=== PATIENT | male | born 1965 ===

== ENCOUNTER 2022-11-25 06:20 | Day surgery (SDC) | payer MEDICAID, SELFPAY ==
[2022-11-25 06:32] VITALS: BP 145/82; PULSE 76; RESP 16; TEMP 36.5; O2SAT 97
[2022-11-25] MEDS: Tropicam./Phenyleph. (1/2.5%) 5 ML BTL OD ×3 (06:40→06:50)
--- NOTE | 2022-11-25 07:02 | W.ANESPRE ---
General Info Date of Service Date Performed: 11/25/22 Height: 5 ft 11 in Weight: 118.6 kg Body Mass Index (BMI): 36.4 Surgical Procedure: Operation Date: 11/25/22 07:40 Proposed Procedure Side Surgeon p Cataract Extraction with IOL Implant Right Júnior Arce MD Meds Allergies and Home Medications Allergies Allergy/AdvReac Type Severity Reaction Status Date / Time ibuprofen AdvReac Intermediate Vomiting Verified 11/25/22 06:27 Home Medication Medication Instructions Recorded duloxetine 60 mg capsule,delayed 60 mg PO DAILY 11/24/22 release esomeprazole magnesium 40 mg 40 mg PO DAILY 11/24/22 capsule,delayed release magnesium gluconate 12.5 mg 250 mg PO DAILY 11/24/22 magnesium (250 mg) tablet meloxicam 15 mg tablet 15 mg PO DAILY 11/24/22 propranolol 60 mg tablet 60 mg PO BID 11/24/22 simvastatin 40 mg tablet 40 mg PO DAILY 11/24/22 topiramate 25 mg tablet 25 mg PO HS 11/24/22 Current Visit Medications: Current Medications Generic Name Dose Route Start Last Admin Trade Name Freq PRN Reason Stop Dose Admin Acetaminophen 1,000 mg 11/25/22 06:00 Acetaminophen 500 Mg Tab PO 12/25/22 05:59 Q4H PRN PRN Balanced Salt Solution 500 ml 11/25/22 06:00 Balanced Salt Soln.-Plus 500 Ml Bag OP 12/25/22 05:59 DIRECTED [facility] Miscellaneous Medication 0 ml 11/25/22 06:00 Prednisolone 1%, Moxifloxacin 0.5%, Nepafenac 0.1% 5ml Btl OD 12/25/22 05:59 DIRECTED [facility] Miscellaneous Medication 0 ml 11/25/22 06:00 11/25/22 06:50 Tropicam./Phenyleph. (1/2.5%) 5 Ml Btl OD 12/25/22 05:59 1 drp DIRECTED [facility] Administration Tetracaine HCl 0 ml 11/25/22 06:00 Tetracaine 0.5% 4 Ml Btl OD 12/25/22 05:59 DIRECTED [facility] PFSH Active Problems Active Problems: Problem Status Onset Code Nuclear age-related cataract, right eye H25.11 Cortical age-related cataract, right eye H25.011 Medical History Medical History Abdominal pain Actinic keratosis Allergic rhinitis Chest pain Per pt. niece stated he had this worked up and came back negative CKD (chronic kidney disease) Connective tissue disorder Constipation COPD (chronic obstructive pulmonary disease) Depressive disorder GERD (gastroesophageal reflux disease) Hand joint pain Hearing loss in right ear Heartburn HLD (hyperlipidemia) Hx musculoskeletal disease Impotence Increased frequency of urination Insomnia Kidney stone Low back pain Mental disorder Need for zoster vaccine Non-organic sleep disorder Obesity PLMD (periodic limb movement disorder) Reduced libido Refractory migraine with aura Surgical History Surgical History Hx of colonoscopy Tobacco Smoking/Tobacco Use Status: Former Tobacco Use Alcohol Alcohol Intake: never Substance Use Substance use: Never Substance use type: does not use Vital Signs and Lab Results Vital Signs Most Recent Vital Signs in EMR: Most Recent Vital Signs Temp Pulse Resp BP Pulse Ox 36.5 C 76 16 145/82 H 97 11/25/22 06:32 11/25/22 06:32 11/25/22 06:32 11/25/22 06:32 11/25/22 06:32 Lab Results Blood Type / Crossmatch: No Data to Display Complete Blood Count: No Data to Display Complete Metabolic Panel: No Data to Display Liver Function Panel: No Data to Display Coagulation Panel: No Data to Display Cardiac Panel: No Data to Display Arterial Blood Gas: No Data to Display Venous Blood Gas: No Data to Display Pancreas Panel: No Data to Display Thyroid Panel: No Data to Display Infectious Disease: No Data to Display Blood Cultures: No Data to Display Toxicology Panel: No Data to Display Anesthesia Assessment and Plan Anesthesia History Personal History: No History of Anesthesia Complications Family History: No Family History of Anesthesia Complications Exercise Tolerance Exercise Tolerance: Metabolic Equivalents<4 Pertinent Negatives Pertinent Negatives: No Symptoms of GERD, No Major Cardiovascular Symptoms or Complaints and No Major Pulmonary Symptoms or Complaints Cardiac & Pulmonary Exam Cardiac Exam: Normal S1/S2 Heart Sounds Pulmonary Exam: Clear Bilateral Breath Sounds Implantable Cardiac Device Does patient have a Pacemaker or an ICD?: No Airway Exam Known Difficult Airway: No Mallampati Class: 3 Mouth Opening: Normal (> 3cm) Thyromental Distance: Greater than 3 cm Neck Range of Motion: Full ROM Neck Circumference: Normal Teeth Condition: Edentulous ASA Classification ASA Score: ASA 3 Emergency Case?: No NPO Status NPO Status: NPO Clears >2 hours, Solids >8 hours Anesthesia Plan Resuscitation Status: Full Code Anesthesia Technique: MAC Anesthesia Airway Planned: Natural Airway Monitors Used: Standard Monitors
[2022-11-25 07:05] VITALS: BMI 36.4
[2022-11-25] MEDS: Tetracaine 0.5% 4 ML BTL OD (07:34)
[2022-11-25] MEDS: Povidone-Iodine Ophth 30 ML BTL (07:35)
[2022-11-25] MEDS: Phenylephrine/Lidocaine (15/10) MG/ML 1 ML VIAL (07:38)
[2022-11-25] MEDS: Balanced Salt Soln.-PLUS 500 ML BAG OP (07:38)
[2022-11-25] MEDS: Lidocaine 1% Pres-Free 5 ML VIAL (07:39)
[2022-11-25] MEDS: Duovisc Viscoelastic System EACH 1 EACH (07:39)
[2022-11-25 08:00] VITALS: BP 144/86; PULSE 70; RESP 16; TEMP 36.4; O2SAT 95
--- NOTE | 2022-11-25 08:02 | ROE_ITS ---
Date of service: 11/25/22 Time of Service: 08:02 Operative Note Operative Note DATE OF PROCEDURE: 11/25/22 PRE-OP DIAGNOSIS: Nuclear/cortical cataract, right eye POST-OP DIAGNOSIS: same PROCEDURE: Cataract extraction using phacoemulsification with intraocular lens implant, right eye SURGEON: Júnior Arce ANESTHESIA TYPE: Local By Surgeon and MAC Refer to Anesthesia Record ESTIMATED BLOOD LOSS: 0 PATHOLOGY: none sent COMPLICATIONS: None Patient was transported to: same day Patient's condition: stable Implants: Rex Clareon [id number] Indications: Progressive decreased vision due to cataract, right eye Procedure Description: CATARACT SURGERY OPERATIVE REPORT PREOPERATIVE DIAGNOSIS: Nuclear/cortical cataract, right eye POSTOPERATIVE DIAGNOSIS: Same OPERATION: Cataract extraction using phacoemulsification with posterior chamber intraocular lens implant, right eye. IOL: IOL Medical Typist/Model: Rex Clareon [id number] IOL Power: + 19.5 diopters IOL Serial Number: [id number] Optic Diameter: 6.0mm Haptic/Overall Diameter: 13.0mm PHACO INFO: Rex[employer]a [employer]urion Vision System with OZil and Active Fluidics Cumulative Dispersed Energy (CDE): 19.37 seconds SURGEON: Júnior Arce MD, RADHA ANESTHESIA: Monitored Anesthesia Care (MAC), with local sub-tenon's anesthetic infiltration COMPLICATIONS: None SPECIMENS: None INDICATIONS FOR PROCEDURE: The patient is a 56-year-old male with history of diminished visual acuity in his right eye secondary to the development of dense nuclear/cortical cataract. He is significantly symptomatic that he desires cataract surgery and attempt to improve and maximize his vision. See office notes for detailed information. PROCEDURE: The correct surgical eye was identified and marked as the right eye and the pupil was dilated in the preoperative area using mydriatics and cycloplegics. The dilated pupil size was 7.0 mm. The patient elected to proceed without oral sedation. The patient was brought to the operating room where cardiopulmonary monitoring was instituted and surgical time-out was performed, confirming the correct operative eye and IOL power. Topical anesthesia was administered and ophthalmic povidone-iodine 5% was instilled into the conjunctival fornices. The ugo-ocular area was prepped with Betadine 10% solution and draped in the usual sterile fashion for intraocular surgery, including an aperture drape. A Tegaderm transparent film dressing was cut in half and used to cover the lashes and lid margins. Care was taken to sequester the lashes and lid margins under the Tegaderm dressing. A lid speculum was placed between the lids of the operative eye and the Galdino-Yvonne operating microscope was maneuvered into position. Josefina scissors were then used to make a conjunctival buttonhole approximately 6mm posterior to the limbus in the inferonasal quadrant. Blunt dissection was carried out to expose bare sclera, and a blunt-tipped sub-tenon?s anesthesia cannula was introduced and passed posteriorly along the globe where non- preserved plain lidocaine was injected into posterior sub-Tenon?s space. A sideport knife was used to make a paracentesis port. Intraocular phenylephrine/lidocaine was injected into the anterior chamber. The anterior chamber was then filled with viscoelastic. A keratome knife was used to construct a two--plane clear corneal tunnel extending 2.0mm into clear cornea. A flap was raised on the anterior capsule and capsulorhexis forceps were used to complete a continuous curvilinear capsulorhexis of 5.0 mm. Balanced salt solution was then used to perform cortical cleaving hydrodi ssection and nuclear hydrodelineation until the lens could be freely rotated within the capsular bag. The lens nucleus was then disassembled and removed within the capsular bag and iris plane using phacoemulsification. Residual cortical material was removed using the I/A handpiece. The posterior capsule was carefully polished to remove as much residual lens epithelial cells as safely possible. The capsular bag was then inflated and the anterior chamber deepened with cohesive viscoelastic. The lens implant described above was inserted into the capsular bag using the Rex Autonome Injector. A Kuglen hook was used to dial the IOL into position. Residual viscoelastic was then removed first from posterior to the IOL, then from the anterior chamber using the I/A handpiece. The lens implant was noted to center nicely within the capsular bag. The incisions were stromally hydrated, and the anterior chamber was reformed using BSS. Then 0.5cc of moxifloxacin 1.0mg/ml were injected into the capsular bag and anterior chamber. The incisions were checked with a Weck spear and found to be secure. Several drops of ophthalmic povidone-iodine 5% were then applied to the eye followed by two drops of Imprimis combination prednisolone/moxifloxacin/nepafenac solution. The apes were removed and a clear plastic protective eye shield was placed over the eye. The patient was then returned to Same Day Surgery in stable condition.
--- NOTE | 2022-11-25 08:02 | W.PM.DSUDISC ---
Date of service: 11/25/22 Time of Service: 08:02 Discharge Plan Disposition Patient Disposition: Home Discharge Details Attending Provider: Júnior Arce Primary Care Provider: Angie Byrd Home Meds and New Rx's Prescriptions: No Action meloxicam 15 mg tablet 15 mg PO DAILY Patient Comments: TAKE ONE TABLET BY MOUTH EVERY DAY topiramate 25 mg tablet 25 mg PO HS Patient Comments: TAKE ONE TABLET BY MOUTH EVERY DAY AT BEDTIME propranolol 60 mg tablet 60 mg PO BID Patient Comments: TAKE ONE TABLET BY MOUTH TWICE A DAY simvastatin 40 mg tablet 40 mg PO DAILY Patient Comments: TAKE ONE TABLET BY MOUTH EVERY DAY magnesium gluconate 12.5 mg magne- sium (250 mg) tablet 250 mg PO DAILY esomeprazole magnesium 40 mg capsule,delayed release(DR/EC) 40 mg PO DAILY Patient Comments: TAKE ONE CAPSULE BY MOUTH EVERY DAY duloxetine 60 mg capsule,delayed release(DR/EC) 60 mg PO DAILY Patient Comments: TAKE ONE CAPSULE BY MOUTH EVERY DAY Discharge Instructions Stand Alone Forms: Post-op Topical Cataract, Vernell Watters ([facility]) Discharge Orders Discharge Orders: Discharge Order (Routine); Ordered 11/25/22 Ordered By: Júnior Arce DS: Diagnosis Discharge Diagnosis (1) Nuclear age-related cataract, right eye: Status: Resolved (2) Cortical age-related cataract, right eye: Status: Resolved
--- NOTE | 2022-11-25 08:24 | W.ANESPOSTOP ---
Postoperative Evaluation Date, Time and Location Date Performed: 11/25/22 Time Performed: 08:01 Patient Location: Day Surgery Unit Vital Signs Most Recent Imported Vital Signs: Most Recent Vital Signs Temp Pulse Resp BP Pulse Ox 36.4 C L 70 16 144/86 H 95 11/25/22 08:00 11/25/22 08:00 11/25/22 08:00 11/25/22 08:00 11/25/22 08:00 Pain Score Most Recent Pain Score: Most Recent Pain Score Pain Level 0 11/25/22 08:00 Assessment Mental Status: Awake (Alert & Oriented to Patient Baseline) Airway and Respiratory Function: Patent airway with normal (patient baseline) respiratory exam Cardiovascular Function: Hemodynamically Stable Hydration Status: Adequately Hydrated Nausea & Vomiting: No Nausea or Vomiting Pain: Pt. Denies Any Pain Peripheral Nerve Block: Patient did not receive a nerve block
== END 2022-11-25 08:24 | disposition home or self-care (01) ==
LOC: SUR 06:20
PROVIDERS: PCP Nurse Practitioner Adult Health; Visit Provider Ophthalmology
PROC: (CPT 66984; principal; 2022-11-25 07:30)
DX: H25.11 Age-related nuclear cataract, right eye (principal); H25.011 Cortical age-related cataract, right eye; K21.9 Gastro-esophageal reflux disease without esophagitis
CPT/HCPCS: 66984; V2632

== ENCOUNTER 2022-12-09 06:19 | Day surgery (SDC) | payer MEDICAID, SELFPAY ==
[2022-12-09 06:30] VITALS: BP 126/80; PULSE 74; RESP 17; TEMP 36.5; O2SAT 97
[2022-12-09] MEDS: Tropicam./Phenyleph. (1/2.5%) 5 ML BTL OS ×3 (06:36→06:47)
--- NOTE | 2022-12-09 07:16 | W.ANESPRE ---
General Info Date of Service Date Performed: 12/09/22 Height: 5 ft 11 in Weight: 119.4 kg Body Mass Index (BMI): 36.7 Surgical Procedure: Operation Date: 12/09/22 07:40 Proposed Procedure Side Surgeon p Cataract Extraction with IOL Implant Left Júnior Arce MD Meds Allergies and Home Medications Allergies Allergy/AdvReac Type Severity Reaction Status Date / Time ibuprofen AdvReac Intermediate Vomiting Verified 12/09/22 06:35 Home Medication Medication Instructions Recorded duloxetine 60 mg capsule,delayed 60 mg PO DAILY 11/24/22 release esomeprazole magnesium 40 mg 40 mg PO DAILY 11/24/22 capsule,delayed release magnesium gluconate 12.5 mg 250 mg PO DAILY 11/24/22 magnesium (250 mg) tablet meloxicam 15 mg tablet 15 mg PO DAILY 11/24/22 propranolol 60 mg tablet 60 mg PO BID 11/24/22 simvastatin 40 mg tablet 40 mg PO DAILY 11/24/22 topiramate 25 mg tablet 25 mg PO HS 11/24/22 Current Visit Medications: Current Medications Generic Name Dose Route Start Last Admin Trade Name Freq PRN Reason Stop Dose Admin Acetaminophen 1,000 mg 12/09/22 06:00 Acetaminophen 500 Mg Tab PO 01/08/23 05:59 Q4H PRN PRN Balanced Salt Solution 500 ml 12/09/22 06:00 Balanced Salt Soln.-Plus 500 Ml Bag OP 01/08/23 05:59 DIRECTED [facility] Miscellaneous Medication 0 ml 12/09/22 06:00 Prednisolone 1%, Moxifloxacin 0.5%, Nepafenac 0.1% 5ml Btl OS 01/08/23 05:59 DIRECTED [facility] Miscellaneous Medication 0 ml 12/09/22 06:00 12/09/22 06:47 Tropicam./Phenyleph. (1/2.5%) 5 Ml Btl OS 01/08/23 05:59 1 drp DIRECTED [facility] Administration Tetracaine HCl 0 ml 12/09/22 06:00 Tetracaine 0.5% 4 Ml Btl OS 01/08/23 05:59 DIRECTED [facility] PFSH Active Problems Active Problems: Problem Status Onset Code Cortical age-related cataract, left eye H25.012 Nuclear age-related cataract, left eye H25.12 Nuclear age-related cataract, right eye H25.11 Cortical age-related cataract, right eye H25.011 Medical History Medical History COPD (chronic obstructive pulmonary disease) Refractory migraine with aura Reduced libido PLMD (periodic limb movement disorder) Obesity Non-organic sleep disorder Need for zoster vaccine Mental disorder Low back pain Kidney stone Insomnia Increased frequency of urination Impotence HLD (hyperlipidemia) Connective tissue disorder Heartburn Hearing loss in right ear Hand joint pain Hx musculoskeletal disease GERD (gastroesophageal reflux disease) Depressive disorder Constipation CKD (chronic kidney disease) Chest pain Per pt. niece stated he had this worked up and came back negative Actinic keratosis Allergic rhinitis Abdominal pain Surgical History Surgical History Hx of colonoscopy Tobacco Smoking/Tobacco Use Status: Former Tobacco Use Alcohol Alcohol Intake: never Substance Use Substance use: Never Substance use type: does not use Vital Signs and Lab Results Vital Signs Most Recent Vital Signs in EMR: Most Recent Vital Signs Temp Pulse Resp BP Pulse Ox 36.5 C 74 17 126/80 97 12/09/22 06:30 12/09/22 06:30 12/09/22 06:30 12/09/22 06:30 12/09/22 06:30 Lab Results Blood Type / Crossmatch: No Data to Display Complete Blood Count: No Data to Display Complete Metabolic Panel: No Data to Display Liver Function Panel: No Data to Display Coagulation Panel: No Data to Display Cardiac Panel: No Data to Display Arterial Blood Gas: No Data to Display Venous Blood Gas: No Data to Display Pancreas Panel: No Data to Display Thyroid Panel: No Data to Display Infectious Disease: No Data to Display Blood Cultures: No Data to Display Toxicology Panel: No Data to Display Anesthesia Assessment and Plan Anesthesia History Personal History: No History of Anesthesia Complications Family History: No Family History of Anesthesia Complications Exercise Tolerance Exercise Tolerance: Metabolic Equivalents<4 Pertinent Negatives Pertinent Negatives: No Symptoms of GERD, No Major Cardiovascular Symptoms or Complaints and No Major Pulmonary Symptoms or Complaints Cardiac & Pulmonary Exam Cardiac Exam: Normal S1/S2 Heart Sounds Pulmonary Exam: Clear Bilateral Breath Sounds Implantable Cardiac Device Does patient have a Pacemaker or an ICD?: No Airway Exam Known Difficult Airway: No Mallampati Class: 3 Mouth Opening: Normal (> 3cm) Thyromental Distance: Greater than 3 cm Neck Range of Motion: Full ROM Neck Circumference: Normal Teeth Condition: Edentulous ASA Classification ASA Score: ASA 3 Emergency Case?: No NPO Status NPO Status: NPO Clears >2 hours, Solids >8 hours Anesthesia Plan Resuscitation Status: Full Code Anesthesia Technique: MAC Anesthesia Airway Planned: Natural Airway Monitors Used: Standard Monitors
[2022-12-09 07:21] VITALS: BMI 36.7
[2022-12-09] MEDS: Lidocaine 1% Pres-Free 5 ML VIAL (07:26)
[2022-12-09] MEDS: Phenylephrine/Lidocaine (15/10) MG/ML 1 ML VIAL (07:28)
[2022-12-09] MEDS: Povidone-Iodine Ophth 30 ML BTL (07:28)
[2022-12-09] MEDS: Duovisc Viscoelastic System EACH 1 EACH (07:29)
[2022-12-09] MEDS: Balanced Salt Soln.-PLUS 500 ML BAG OP (07:29)
[2022-12-09] MEDS: Tetracaine 0.5% 4 ML BTL OS (07:31)
[2022-12-09 07:51] VITALS: BP 118/74; PULSE 65; RESP 18; TEMP 36.5; O2SAT 97
--- NOTE | 2022-12-09 07:52 | ROE_ITS ---
Date of service: 12/09/22 Time of Service: 07:52 Operative Note Operative Note DATE OF PROCEDURE: 12/09/22 PRE-OP DIAGNOSIS: Nuclear/cortical cataract, left eye POST-OP DIAGNOSIS: same PROCEDURE: Cataract extraction using phacoemulsification with intraocular lens implant, left eye SURGEON: Júnior Arce ANESTHESIA TYPE: Local By Surgeon and MAC Refer to Anesthesia Record PATHOLOGY: none sent COMPLICATIONS: None Patient was transported to: same day Patient's condition: stable Implants: Rex Clareon [id number] Indications: Progressive decreased vision due to cataract, left eye Procedure Description: CATARACT SURGERY OPERATIVE REPORT PREOPERATIVE DIAGNOSIS: Nuclear/cortical cataract, left eye POSTOPERATIVE DIAGNOSIS: Same OPERATION: Cataract extraction using phacoemulsification with posterior chamber intraocular lens implant, left eye. IOL: IOL Staff Counsel/Model: Rex Clareon [id number] IOL Power: + 20.5 diopters IOL Serial Number: [id number] Optic Diameter: 6.0mm Haptic/Overall Diameter: 13.0mm PHACO INFO: [employer]ion Vision System with OZil and Active Fluidics Cumulative Dispersed Energy (CDE): 8.02 seconds SURGEON: Júnior Arce MD, RADHA ANESTHESIA: Monitored Anesthesia Care (MAC), with local sub-tenon's anesthetic infiltration COMPLICATIONS: None SPECIMENS: None INDICATIONS FOR PROCEDURE: Patient is a 56-year-old male with history of diminished visual acuity in both eyes secondary to the development of bilateral nuclear/cortical cataract. He has already undergone cataract surgery in the right eye and is doing well postoperatively. He now presents for cataract surgery in the left eye. See off ice notes for detailed information. PROCEDURE: The correct surgical eye was identified and marked as the left eye and the pupil was dilated in the preoperative area using mydriatics and cycloplegics. The dilated pupil size was 7.0 mm. . The patient elected to proceed without oral sedation. The patient was brought to the operating room where cardiopulmonary monitoring was instituted and surgical time-out was performed, confirming the correct operative eye and IOL power. Topical anesthesia was administered and ophthalmic povidone-iodine 5% was instilled into the conjunctival fornices. The ugo-ocular area was prepped with Betadine 10% solution and draped in the usual sterile fashion for intraocular surgery, including an aperture drape. A Tegaderm transparent film dressing was cut in half and used to cover the lashes and lid margins. Care was taken to sequester the lashes and lid margins under the Tegaderm dressing. A lid speculum was placed between the lids of the operative eye and the Rex [employer] Revalia operating microscope was maneuvered into position. Josefina scissors were then used to make a conjunctival buttonhole approximately 6mm posterior to the limbus in the inferonasal quadrant. Blunt dissection was carried out to expose bare sclera, and a blunt-tipped sub-tenon?s anesthesia cannula was introduced and passed posteriorly along the globe where non- preserved plain lidocaine was injected into posterior sub-Tenon?s space. A sideport knife was used to make a paracentesis port. Intraocular phenylephrine/lidocaine was injected into the anterior chamber. The anterior chamber was then filled with viscoelastic. A keratome knife was used construct a two-plane clear corneal tunnel extending 2.0mm into clear cornea. A flap was raised on the anterior capsule and capsulorhexis forceps were used to complete a continuous curvilinear capsulorhexis of 5.8 mm. Balanced salt solution was then used to perform cortical cleaving hydrodissec tion and nuclear hydrodelineation until the lens could be freely rotated within the capsular bag. The lens nucleus was then disassembled and removed within the capsular bag and iris plane using phacoemulsification. Residual cortical material was removed using the irrigation/aspiration handpiece. The posterior capsule was carefully polished to remove as much residual lens epithelial cells as safely possible. The capsular bag was then inflated and the anterior chamber deepened with viscoelastic. The lens implant described above was inserted into the capsular bag using the Rex Autonome Injector. A Kuglen hook was used to dial the IOL into position. Residual viscoelastic was then removed first from posterior to the IOL, then from the anterior chamber using the I/A handpiece. The lens implant was noted to center nicely within the capsular bag. The incisions were stromally hydrated, and the anterior chamber was reformed using BSS. Then 0.5cc of moxifloxacin 1.0mg/ml were injected into the capsular bag and anterior chamber. The incisions were checked with a Weck spear and found to be secure. Several drops of ophthalmic povidone-iodine 5% were then applied to the eye followed by two drops of Imprimis combination prednisolone/moxifloxacin/nepafenac solution. The drapes were removed and a clear plastic protective eye shield was placed over the eye. The patient was then returned to Same Day Surgery in stable condition.
--- NOTE | 2022-12-09 07:52 | W.PM.DSUDISC ---
Date of service: 12/09/22 Time of Service: 07:52 Discharge Plan Disposition Patient Disposition: Home Discharge Details Attending Provider: Júnior Arce Primary Care Provider: Angie Byrd Home Meds and New Rx's Prescriptions: No Action meloxicam 15 mg tablet 15 mg PO DAILY Patient Comments: TAKE ONE TABLET BY MOUTH EVERY DAY topiramate 25 mg tablet 25 mg PO HS Patient Comments: TAKE ONE TABLET BY MOUTH EVERY DAY AT BEDTIME propranolol 60 mg tablet 60 mg PO BID Patient Comments: TAKE ONE TABLET BY MOUTH TWICE A DAY simvastatin 40 mg tablet 40 mg PO DAILY Patient Comments: TAKE ONE TABLET BY MOUTH EVERY DAY magnesium gluconate 12.5 mg magne- sium (250 mg) tablet 250 mg PO DAILY esomeprazole magnesium 40 mg capsule,delayed release(DR/EC) 40 mg PO DAILY Patient Comments: TAKE ONE CAPSULE BY MOUTH EVERY DAY duloxetine 60 mg capsule,delayed release(DR/EC) 60 mg PO DAILY Patient Comments: TAKE ONE CAPSULE BY MOUTH EVERY DAY Discharge Instructions Stand Alone Forms: Post-op Topical Cataract, Vernell Watters ([facility]) Discharge Orders Discharge Orders: Discharge Order (Routine); Ordered 12/09/22 Ordered By: Júnior Arce DS: Diagnosis Discharge Diagnosis (1) Cortical age-related cataract, left eye: Status: Resolved (2) Nuclear age-related cataract, left eye: Status: Resolved
--- NOTE | 2022-12-09 08:13 | W.ANESPOSTOP ---
Postoperative Evaluation Date, Time and Location Date Performed: 12/09/22 Time Performed: 07:55 Patient Location: Day Surgery Unit Vital Signs Most Recent Imported Vital Signs: Most Recent Vital Signs Temp Pulse Resp BP Pulse Ox 36.5 C 65 18 118/74 97 12/09/22 07:51 12/09/22 07:51 12/09/22 07:51 12/09/22 07:51 12/09/22 07:51 Pain Score Most Recent Pain Score: Most Recent Pain Score Pain Level 0 12/09/22 07:51 Assessment Mental Status: Awake (Alert & Oriented to Patient Baseline) Airway and Respiratory Function: Patent airway with normal (patient baseline) respiratory exam Cardiovascular Function: Hemodynamically Stable Hydration Status: Adequately Hydrated Nausea & Vomiting: No Nausea or Vomiting Pain: Pt. Denies Any Pain Peripheral Nerve Block: Patient did not receive a nerve block
== END 2022-12-09 08:12 | disposition home or self-care (01) ==
LOC: SUR 06:22
PROVIDERS: PCP Nurse Practitioner Adult Health; Visit Provider Ophthalmology
PROC: (CPT 66984; principal; 2022-12-09 07:30)
DX: H25.012 Cortical age-related cataract, left eye (principal); H25.12 Age-related nuclear cataract, left eye; K21.9 Gastro-esophageal reflux disease without esophagitis; Z98.41 Cataract extraction status, right eye
CPT/HCPCS: 66984; 00123; V2632